=== PATIENT | male | born 1985 | race Caucasian/White ===

== ENCOUNTER 2017-04-24 00:48 | Emergency (ER) | payer MEDICAID ==
[2017-04-24 02:36] VITALS: BP 121/78
== END 2017-04-24 02:36 | disposition home or self-care (01) ==
LOC: ED 00:48
DX: R07.89 Other chest pain (principal)

== ENCOUNTER 2018-06-03 03:55 | Emergency (ER) | payer MEDICAID ==
[~2018-06-03] VITALS: Ht 170.2 cm; Wt 61.0 kg
[2018-06-03 04:01] VITALS: Ht 170.2 cm; Wt 61.0 kg
[2018-06-03 04:37] LABS: UA SPECIFIC GRAVITY 1.025 (1.005-1.035); microscopic required? YES; urine erythrocyte TRACE (NEGATIVE)
[2018-06-03 05:10] VITALS: BP 122/90
== END 2018-06-03 05:10 | disposition home or self-care (01) ==
LOC: ED 03:55
PROVIDERS: Specialist
DX: N39.0 Urinary tract infection, site not specified (principal); R36.9 Urethral discharge, unspecified
CPT/HCPCS: 87491; 87591; J0696

== ENCOUNTER 2018-07-10 08:50 | Emergency (ER) | payer MEDICAID ==
[~2018-07-10] VITALS: Ht 170.2 cm; Wt 59.0 kg
[2018-07-10 08:53] VITALS: Ht 170.2 cm; Wt 59.0 kg
[2018-07-10 09:46] VITALS: BP 114/75
== END 2018-07-10 09:46 | disposition home or self-care (01) ==
LOC: ED 08:50
DX: Z13.89 Encounter for screening for other disorder (principal); G89.29 Other chronic pain; M25.562 Pain in left knee; M25.561 Pain in right knee; J45.909 Unspecified asthma, uncomplicated